=== PATIENT | male | born 1975 | race Caucasian/White ===

== ENCOUNTER 2020-01-21 16:01 | Inpatient (IN) | payer MEDICARE, MEDICAID ==
[~2020-01-21] VITALS: Ht 175.3 cm; Wt 76.8 kg
[2020-01-21 23:00] VITALS: BP 160/89; Ht 175.3 cm; Wt 76.8 kg
[2020-01-21 23:05] VITALS: BP 160/89
--- NOTE | 2020-01-21 23:18 | NUR ---
PATIENT ARRIVED VIA PRIVATE CARE AND ONCE HE ARRIVED TO REHAB UNIT HE STATED THAT HE WANTED TO LEAVE AMA BECAUSE HE HAD CHANGED HIS MIND ABOUT STAYING HERE. I NOTIFIED CUFF TURNER MACHINE OPERATOR AND ATTEMPTED TO CALL THE FRIEND WHO BROUGHT HIM, KESHIA SWEET AND DID NOT GET AN ANSWER. PATIENT AGREED TO STAY THE NIGHT AND WAS INFORMED THAT WE WOULD CALL HIS FRIEND AGAIN IN THE AM. MS SWEET CALLED BACK ABOUT 2300 AND STATED SHE WOULD COME BACK TO PICK HIM UP BECAUSE SHE HAD CALLED HIM AND HE DIDNT WANT TO WAIT UNTIL TOMORROW. SHE TOLD ME THAT SHE WOULD ARRIVE HERE ABOUT 0130 TO PICK HIM UP. I REVIEWED GOING AGAINST MEDICAL ADVICE AND HE VOICED UNDERSTANDING. CUFF TURNER MACHINE OPERATOR NOTIFIED OF THIS UPDATE. PATIENT IS ALERT AND ORIENTED. RESPIRATIONS UNLABORED. HAS MILDY UNSTEADY GAIT BUT MOVES ALL EXTREMITIES WELL. NO RESTING IN BED WAITING ON MS SWEET TO COME PICK HIM UP.
--- NOTE | 2020-01-22 02:22 | NUR ---
PATIENT LEFT AMA WITH FRIEND KESHIA SWEET IN PRIVATE CAR. HOME MEDS AND INSTRUCTIONS GIVEN. LEFT VIA WHEELCHAIR ALERT AND ORIENTED. NO DISTRESS NOTED.
== END 2020-01-22 02:23 | disposition left against medical advice (07) | DRG 66 ==
LOC: D.REHAB 16:01
PROVIDERS: ADMIT Emergency Medicine; ATTEND Emergency Medicine
DX: I63.9 Cerebral infarction, unspecified (principal); I10 Essential (primary) hypertension; Z86.73 Personal history of transient ischemic attack (TIA), and cerebral infarction without residual deficits